=== PATIENT | female | born 1990 | race Caucasian/White ===

== ENCOUNTER 2016-09-18 00:33 | Emergency (ER) | payer MEDICAID, OTHER ==
[~2016-09-18] VITALS: Ht 157.5 cm; Wt 65.9 kg
[~2016-09-18 00:33] MED LIST: BUPR2TAB SL; Docusate Sodium PO; Ibuprofen PO; METO-301 PO; PREN1TAB80 PO; TRAM-14 PO
--- NOTE | 2016-09-18 00:56 | ED.REPORT ---
HPI-Psychiatric Illness Date of Service Sep 18, 2016 ED Provider: Alec Nur MD A 26 year old female with a history of hepatitis C, depression, heroin and meth abuse presents to the ED via [facility] with reported suicidal ideation that began this evening. Patient states that she feels "helpless" and "hopeless". She reports using meth earlier this afternoon approx. 6-7 hours prior to arrival. Nursing Notes Stated Complaint: SUICIDAL IDEATION Nursing Notes Reviewed: Yes Allergies: Coded Allergies: No Known Allergies (Unverified Allergy, Unknown, 09/18/16) Scheduled ([Docusate Sodium]) 100 MG CAPSULE 100 MG PO BID Buprenorphine (Buprenorphine) 2 Mg Tab.subl 4 MG SL DAILY Buprenorphine/Naloxone 8-2 mg (Buprenorphine/Naloxone 8-2 mg) 1 Each Tab.subl 1 TABLET SL DAILY Vits W-Ca,Fe,FA(<1Mg) ( Vitamins) 1 Each Tablet 1 EACH PO DAILY Scheduled PRN ([Ibuprofen]) 600 MG TABLET 600 MG PO Q6H PRN PRN For Pain Metoclopramide (Reglan) 10 Mg Tablet 10 MG PO BID PRN PRN For Nausea Tramadol (Ultram) 50 Mg Tablet 50 MG PO Q8H PRN PRN For Mild Pain Miscellaneous Medications ([None]) General Time Seen by MD: 00:50 Chief Complaint Suicidal ideation Hx Obtained From: Patient, Police Arrived By: Police ([facility]) Onset Occurred: Just prior to arrival Symptom Duration: Since onset Progression Since Onset: Unchanged Associated with: Reports: Illicit drug use Pertinent Negative: Pt denies other symptoms Recent Healthcare: No recent doctor visit, No recent hospitalization Risk-Psychiatric Illness Suicide Risk Stratification Suicide Risk Factors - Adult: : Substance abuse RF Statements: Risk factors reviewed Past Medical History Past Medical History Hepatitis C H/o heroin abuse Chronic opiate use Depression Past Surgical History Reports: Social History Alcohol Use: Denies alcohol use Drug Use: Meth Other Social History: Local resident Ambulatory Status Independent Review of Systems Constitutional: Denies: Chills, Fever Respiratory: Denies: Shortness of breath GI: Denies: Nausea, Vomiting Neurologic: Denies: Change LOC Psychiatric: Reports: Depression, Suicidal ideation Complete sys rev & neg: except as marked. Physical Exam Initial Vital Signs Vital Signs (First) Date Time Temp Pulse Resp B/P Pulse Ox O2 Delivery O2 Flow Rate FiO2 09/18/16 01:18 36.7 108 20 129/81 99 Room Air Initial VS: Reviewed, Vital signs abnormal Head / Eyes: Atraumatic, Normocephalic, PERRL Skin: Warm, Dry, No cyanosis General/Constitutional: Awake, Alert Behavior: Positive: Tearful Neurologic: Oriented X3, Speech NL, No motor deficits, No sensory deficits Psychiatric: Not suicidal Abnormal Mood/Affect: Positive: Depressed (Feels "helpless" ), Hopeless Respiratory / Chest: Atraumatic, No respiratory distress Upper Extremity / MS: Atraumatic, Neurologic intact, Vascular intact Lower Extremity / Pelvis / MS: Atraumatic, Neurologic intact, Vascular intact Re-Eval/Medical Decision Med Decision/Clinical Course 26-year-old female who is very upset about her inability to quit using meth. She was tearful and hyperventilating. She last used 6 or 7 hours ago. She was given Ativan 1 mg IM with good sedation. Her workup was initiated by me. She is now sleeping. Her care will be turned over at change of shift to Dr. Conroy. Re-Evaluation/Progress : Time of Eval: :17 Patient Status: Condition improved Re-Evaluation/Progress Note: Patient is rechecked. She is resting comfortably. Counseled Regarding: Diagnosis Discharge & Departure Shift Change Sign-Out Patient Care Transferred: Yes Discussed Complaint(s): Yes Response to Therapy: Improved Impression: Primary Impression: Methamphetamine abuse Additional Impressions: Opioid dependence on agonist therapy Suicidal ideation Discharge Condition All VS Reviewed: Yes Condition: Stable Referrals: NOPCP (PCP) Care Transferred to: Dr. Conroy Care Transferred at: 06:00 Roberto Attestation Portions of this note were transcribed by Vazquez Ewing. I, Dr. Nur personally performed the history, physical exam and medical decision-making; I reviewed and confirmed the accuracy of the information in the transcribed note. Signed by: Roberto Lindsey, 09/18/16 [id number] Dubon MD Sep 18, 2016 00:56 VAZQUEZ EWING Sep 18, 2016 01:06
[2016-09-18 01:18] VITALS: BP 129/81; PULSE 108; RESP 20; O2SAT 99
[2016-09-18 05:39] VITALS: BP 124/76; PULSE 58; RESP 18; O2SAT 98
[2016-09-18] MEDS ORDERED: BUPR1TAB36 SL (06:30)
[2016-09-18 10:05] VITALS: BP 127/96; PULSE 99; RESP 16; O2SAT 100
[2016-09-18 13:50] VITALS: BP 162/87; PULSE 102; O2SAT 98
== END 2016-09-18 13:50 | disposition home or self-care (01) ==
LOC: SED 00:33
DX: F43.0 Acute stress reaction (principal); F15.10 Other stimulant abuse, uncomplicated; F11.20 Opioid dependence, uncomplicated
CPT/HCPCS: 81002; 81025; 82075; 99284; J2060